=== PATIENT | female | born 1960 | race Two or more races ===

== ENCOUNTER 2021-11-03 23:58 | Emergency (ER) | payer MEDICARE, OTHER ==
[~2021-11-03] VITALS: Ht 165.1 cm; Wt 56.7 kg
--- NOTE | 2021-11-04 00:10 | NUR ---
TO ER BED 9. [id number] FROM HOME C/O ON AND OFF BLEEDING FROM L ARM SHUNT SINCE THURSDAY. BLEEDING CONTROLLED BY EMS. CONNECTED TO MONITOR. AWAITING MD HO
[2021-11-04] MEDS ORDERED: LIDOCAINE 1%-EPI 1:100,000 20 ML VIAL ONE (00:20)
[2021-11-04 00:57] LABS: BASOPHILS # (AUTO) 0.1 K/uL (0.0-0.2); BASOPHILS % (AUTO) 0.5 % (0.0-2.0); EOSINOPHILS % (AUTO) 0.6 % (0.0-6.0); HEMATOCRIT 24 % (33-45); HEMOGLOBIN 7.9 g/dL (11.5-14.8); LYMPHOCYTES # (AUTO) 0.5 K/uL (0.8-4.8); LYMPHOCYTES % (AUTO) 3.8 % (20.0-44.0); MEAN CORPUSCULAR HGB CONC 33 g/dl (31.0-36.0); MEAN CORPUSCULAR VOLUME 98 fL (82-100); MONOCYTES # (AUTO) 0.8 K/uL (0.1-1.30); MONOCYTES % (AUTO) 6.5 % (2.0-12.0); NEUTROPHILS # (AUTO) 11.3 K/uL (1.8-8.9); NEUTROPHILS % (AUTO) 88.6 % (43.0-81.0); PLATELET COUNT (AUTO) 175 K/uL (150-450); RED BLOOD CELL COUNT(AUTO) 2.41 MIL/uL (4.0-5.2); WHITE BLOOD COUNT (AUTO) 12.7 K/uL (4.3-11.0)
--- NOTE | 2021-11-04 01:22 | NUR ---
Patient discharged to home in stable condition. Written and verbal after care instructions given. Patient verbalizes understanding of instruction.
[2021-11-04] MEDS ORDERED: GELATIN SPONGE,ABSORBABLE 1 SPONGE SPONGE TP ONE (05:55)
[2021-11-04 06:14] VITALS: BP 146/70
[2021-11-04] MEDS ORDERED: SEVE800T28 PO (14:05)
[2021-11-04] MEDS ORDERED: NIFE-34 PO (14:05)
== END 2021-11-04 06:14 | disposition home or self-care (01) ==
LOC: ER 11-04 00:01
DX: T82.838A Hemorrhage due to vascular prosthetic devices, implants and grafts, initial encounter (principal); D64.9 Anemia, unspecified; I12.0 Hypertensive chronic kidney disease with stage 5 chronic kidney disease or end stage renal disease; N18.6 End stage renal disease; Z99.2 Dependence on renal dialysis; Y92.89 Other specified places as the place of occurrence of the external cause
CPT/HCPCS: 36415; 85025-TC; J3490

== ENCOUNTER 2021-11-04 13:25 | Inpatient (IN) | payer MEDICARE, OTHER ==
[~2021-11-04] VITALS: Ht 165.1 cm; Wt 55.4 kg
--- NOTE | 2021-11-04 13:27 | NUR ---
[id number] C/O [facility] BLEEDING, TO ER BED 4, NOTED [facility]. HOOKED TO MONITOR, CHANGED TO HOSP GOWN, WARM BLANKET PROVIDED. PATIENT AAO x 4. AWAITING MD HO
--- NOTE | 2021-11-04 13:38 | NUR ---
DR LUQUE AT BEDSIDE
[2021-11-04] MEDS ORDERED: GELATIN SPONGE,ABSORBABLE 1 SPONGE SPONGE TP ONE (13:47)
--- NOTE | 2021-11-04 13:54 | NUR ---
IV ESTBLISHED R HAND 22G. LABS DRAWN AND COLLECTED AT BEDSIDE.
--- NOTE | 2021-11-04 14:00 | NUR ---
RAPID COVID TEST COLLECTED AND SENT
[2021-11-04] MEDS ORDERED: SEVE800T28 PO (14:05)
[2021-11-04] MEDS ORDERED: NIFE-34 PO (14:05)
[2021-11-04] MEDS ORDERED: ACETAMINOPHEN ES 500 MG TABLET ONE (14:15)
[2021-11-04 14:16] LABS: BASOPHILS % (AUTO) 0.2 % (0.0-2.0); LYMPHOCYTES # (AUTO) 0.2 K/uL (0.8-4.8); LYMPHOCYTES % (AUTO) 2.2 % (20.0-44.0); MEAN CORPUSCULAR HGB CONC 34 g/dl (31.0-36.0); MEAN CORPUSCULAR VOLUME 98 fL (82-100); MONOCYTES # (AUTO) 0.4 K/uL (0.1-1.30); MONOCYTES % (AUTO) 3.8 % (2.0-12.0); NEUTROPHILS # (AUTO) 9.3 K/uL (1.8-8.9); NEUTROPHILS % (AUTO) 93.8 % (43.0-81.0); PLATELET COUNT (AUTO) 146 K/uL (150-450)
[2021-11-04 14:26] LABS: RED BLOOD CELL COUNT(AUTO) 1.98 MIL/uL (4.0-5.2)
[2021-11-04 14:27] LABS: HEMOGLOBIN 6.6 g/dL (11.5-14.8)
[2021-11-04 14:28] LABS: HEMATOCRIT 19 % (33-45)
--- NOTE | 2021-11-04 14:28 | NUR ---
HEMOGLOBIN 6.6; HEMATOCRIT 19. DR. HARPER AWARE
[2021-11-04] MEDS ORDERED: ACETAMINOPHEN ES 500 MG TABLET PO ONE (14:30)
[2021-11-04 14:33] LABS: CALCIUM, SERUM 8.4 mg/dL (8.5-10.1); CREATININE 3.1 mg/dL (0.6-1.3); POTASSIUM 3.8 mmol/L (3.5-5.1)
--- NOTE | 2021-11-04 14:49 | NUR ---
BED 307-1 NURSE SHERLEY
[2021-11-04 14:52] LABS: BAND % (MANUAL) 2 % (0.0-5.0); LYMPHOCYTES % (MANUAL) 6 % (16-48); MONOCYTES % (MANUAL) 2 % (0-11.0); NEUTROPHILS % (MANUAL) 90 (42-76)
--- NOTE | 2021-11-04 14:53 | NUR ---
REPORT GIVEN TO SHERLEY GOMEZ OF MS UNIT
--- NOTE | 2021-11-04 15:08 | NUR ---
PT SIGNED CONSENT FORMS FOR BLOOD TRANSFUSION
[2021-11-04] MEDS ORDERED: MAG HYDROX/AL HYDROX/SIMETH 30 ML UDC PO PRN (16:30)
[2021-11-04] MEDS ORDERED: MAGNESIUM HYDROXIDE 30 ML UDC PO PRN (16:30)
[2021-11-04] MEDS ORDERED: Z GUARD REMEDY 4 OZ OINT TP PRN (16:30)
[2021-11-04] MEDS ORDERED: ZOLPIDEM TARTRATE 5 MG TABLET PO PRN (16:30)
--- NOTE | 2021-11-04 17:00 | NUR ---
FRAME GATE MORTISER OPERATOR NOTES ADMITTED THIS 61 Y/O FEMALE PATIENT TO UNIT @6238 VIA GURNEY FROM E.R, ACCOMPANIED BY ER STAFF. PATIENT IS ALERT AND ORIENTED X4, VERBALLY RESPONSIVE, ABLE TO MAKE NEEDS KNOWN, NO SIGNS OF ACUTE DISTRESS NOTED. PATIENT ORIENTED TO ROOM. ON ROOM AIR, TOLERATING WELL. NO SOB NOTED, BREATHING EVEN AND UNLABORED. ABDOMEN SOFT AND NON-TENDER, LUNGS CLEAR TO AUSCULTATION. WITH AV FISTULA ON LEFT UPPER ARM, WITH PRESSURE DRESSING IN PLACE. NO ACTIVE BLEEDING NOTED AT THIS TIME. NOTED WITH IV ACCESS ON RIGHT HAND #22G, AND LEFT ANTECUBITAL #20G, INTACT AND PATENT, FLUSHES WELL, SALINE LOCKED. BODY ASSESSMENT DONE. SKIN GENERALLY INTACT. SAFETY MEASURE IN PLACE, BED IN LOWEST AND LOCKED POSITION, SIDE RAILS UP X2, CALL LIGHT PLACED WITHIN EASY REACH. WILL CONTINUE TO MONITOR PATIENT.
[2021-11-04] MEDS: ACETAMINOPHEN 325 MG TABLET PO PRN (17:42)
[2021-11-04 18:00] VITALS: BP 145/60
--- NOTE | 2021-11-04 18:17 | NUR ---
RN NOTES DR. MAYS CAME TO SEE PATIENT. CHECKED AV FISTULA SITE. APPLIED DERMABOND TO LEFT UPPER ARM AV FISTULA TO STOP BLEEDING AND COVERED WITH OIL EMULSION DRESSING, 4X4 GAUZE AND WRAPPED WITH KERLIX.
--- NOTE | 2021-11-04 19:00 | NUR ---
RN CLOSING NOTES PATIENT IN BED, ASLEEP, EASILY AROUSED. NO SIGNS OF ACUTE DISTRESS NOTED. STABLE ON ROOM AIR. LEFT UPPER ARM AV FISTULA SITE, WITH PRESSURE DRESSING, NO BLEEDING NOTED AT THIS TIME. SAFETY MEASURE IN PLACE. FOR TRANSFUSION OF 1 UNIT PRBC, BLOOD NOT READY AT THIS TIME. ENDORSED TO NEXT SHIFT.
--- NOTE | 2021-11-04 19:30 | NUR ---
RN opening notes Pt is sitting in bed comfortably talking on the phone. Pt is alert and orientedX4. On room air. No SOB. No S/s of distress noted. IV site at R hand# 22 is clean, intact and SL. RAC# 20 is clean, intact and flushes easily and SL. L arm av fistula dressing is intact, clean, and dry. Safety precautions is maintained. Bed at low position, brakes locked, side rails upX2, hob elevated and call light is within reach. Will continue to monitor.
[2021-11-04 20:00] VITALS: BP 156/59
--- NOTE | 2021-11-04 20:02 | NUR ---
RN notes [facility] called to find out Pt's home meds. Spoke with Pt regarding home meds. Pt informed that Pt is taking nifedipine 60 mg twice a day morning and evening. Pt also taking sevelamer twice a day with food but Pt does not remember the dosage. Informed [facility] about Pt's meds.
--- NOTE | 2021-11-04 20:39 | NUR ---
RN notes Called blood bank spoke with Avi, regarding 1 unit PRBC. Blood bank informed that PRBC will be ready in 1 hour. will continue to monitor.
[2021-11-04] MEDS: NIFEdipine XL (30MG) 30 MG TAB PO SCH (21:23)
--- NOTE | 2021-11-04 22:15 | NUR ---
RN notes Picked up 1 unit PRBC from blood bank. Received 1 unit PRBC from blood bank
[2021-11-04 22:30] VITALS: BP 142/62
[2021-11-04 22:45] VITALS: BP 127/52
--- NOTE | 2021-11-04 22:47 | NUR ---
JASON notes 1 unit PRBC started. VS is stable. Blood checked and cosigned with JASON Reyes. Addendum: 11/05/21 at 0027 by JACKIE CONNER RN 1 unit PRBC started at 2230 pm
[2021-11-04 23:05] VITALS: BP 132/52
[2021-11-04 23:35] VITALS: BP 142/62
--- NOTE | 2021-11-05 01:20 | NUR ---
RN notes Pt's AV fistula site is bleeding. Reinforce the dressing site with 4x4 and wrapped with kerlix and secured with dressing tape. Charge nurse is at the bedside. Will continue to monitor.
[2021-11-05 01:30] VITALS: BP 150/66
--- NOTE | 2021-11-05 01:30 | NUR ---
RN notes 1 unit PRBC finished transfusing. VS is stable. No SOB. No S/S of distress noted. Pt tolerated activity well.
[2021-11-05] MEDS: ACETAMINOPHEN 325 MG TABLET PO PRN ×4 (02:36→23:14)
--- NOTE | 2021-11-05 06:30 | NUR ---
RN closing notes Pt is resting in bed comfortably. Pt is alert and orientedX4. on room air. No SOB. No S/S of distress noted. VS is stable. IV site at RAC # 20 is clean, intact and SL. Routine meds were given as ordered. Kept Pt clean, dry and comfortable. Reinforce the fistula dressing. Dressing is intact. Safety precautions is maintained. Bed at low position, brakes locked, side rails upX2, hob elevated and bed alarm is on and call light is within reach. Will endorse to am nurse for TIMOTEO.
[2021-11-05 06:48] LABS: BASOPHILS % (AUTO) 0.3 % (0.0-2.0); CALCIUM, SERUM 7.6 mg/dL (8.5-10.1); CREATININE 5.3 mg/dL (0.6-1.3); LYMPHOCYTES # (AUTO) 0.1 K/uL (0.8-4.8); LYMPHOCYTES % (AUTO) 1.4 % (20.0-44.0); MEAN CORPUSCULAR HGB CONC 34 g/dl (31.0-36.0); MEAN CORPUSCULAR VOLUME 96 fL (82-100); MONOCYTES # (AUTO) 0.5 K/uL (0.1-1.30); MONOCYTES % (AUTO) 5.5 % (2.0-12.0); NEUTROPHILS # (AUTO) 9.3 K/uL (1.8-8.9); NEUTROPHILS % (AUTO) 92.8 % (43.0-81.0); PHOSPHORUS 5.1 mg/dL (2.5-4.9); PLATELET COUNT (AUTO) 106 K/uL (150-450); POTASSIUM 4.9 mmol/L (3.5-5.1)
[2021-11-05 06:58] LABS: RED BLOOD CELL COUNT(AUTO) 1.87 MIL/uL (4.0-5.2)
[2021-11-05 07:01] LABS: HEMATOCRIT 18 % (33-45); HEMOGLOBIN 6.1 g/dL (11.5-14.8)
--- NOTE | 2021-11-05 07:01 | NUR ---
RN notes Received a critical lab from [place], lab. Hemoglobin is 6.1. Will endorse to am nurse. Addendum: 11/05/21 at 0825 by JACKIE CONNER RN Charge nurse Kiana RN is aware and informed.
--- NOTE | 2021-11-05 08:04 | NUR ---
RN MS NOTES PT IN BED, AWAKE, ALERT, NO COMPLAINT AT THIS TIME, RESPIRATIONS NORMAL, DRESSING AT LEFT ARM A FISTULA INTACT, MINIMAL BLEEDING NOTED, PRESSURE APPLIED, ICE APPLIED, BED ALARM ON, WILL CONTINUE TO MONITOR.
--- NOTE | 2021-11-05 08:23 | NUR ---
RN MS NOTES DR. DIAZ INFORMED OF PT'S STATUS AND LATEST H/H, ORDER GIVEN FOR 1 UNIT PRBC STAT, NOTED AND CARRIED OUT.
[2021-11-05] MEDS: NIFEdipine XL (30MG) 30 MG TAB PO SCH ×2 (08:40→17:02)
[2021-11-05] MEDS: SEVELAMER CARBONATE 800 MG TABLET PO SCH ×2 (08:41→17:01)
[2021-11-05] MEDS ORDERED: NIFEdipine XL (30MG) 30 MG TAB PO SCH (09:00)
--- NOTE | 2021-11-05 09:50 | NUR ---
MS RN OPENING NOTES RECEIVED PATIENT ON BED AWAKE AND A/O X4. ON ROOM AIR TOLERATING WELL. NO SOB NOTED. NOT IN DISTRESS. WITH NO COMPLAINTS OF PAIN OR DISCOMFORT AT THIS TIME. DRESSING ON LEFT ARM WITH PRESENCE OF MINIMAL BLEEDING FROM AV FISTULA. PER ENDORSEMENT, DRESSING SHOULD NOT BE REMOVED BUT ONLY REINFORCE WITH PRESENCE OF BLEEDING. WITH IV ACCESS AT RIGHT AC G20 SALINE LOCKED, PATENT AND INTACT. SAFETY MEASURES IN PLACED. CALL LIGHT WITHIN REACH. BED ON LOWEST LOCKED POSITION, SIDE RAILS UP X2. WILL CONTINUE TO MONITOR.
--- NOTE | 2021-11-05 09:54 | NUR ---
RN MS NOTES REPORT GIVEN TO PAWAN GOMEZ RECEIVING NURSE, PT IN BED, RESTING, NO COMPLAINT AT THIS TIME, NOT IN DISTRESS, CALL LIGHT WITHIN REACH.
[2021-11-05 10:33] VITALS: BP 126/52
--- NOTE | 2021-11-05 10:39 | NUR ---
RN NOTE PATIENT'S HGB IS 6.1. JASON SR STARTED THE BLOOD TRANSFUSION. VITAL SIGNS TAKEN AND RECORDED. WILL MONITOR PATIENT.
[2021-11-05 10:54] VITALS: BP 135/51
[2021-11-05 11:24] VITALS: BP 136/53
[2021-11-05 12:24] VITALS: BP 138/55
[2021-11-05 12:45] LABS: BAND % (MANUAL) 5 % (0.0-5.0); LYMPHOCYTES % (MANUAL) 2 % (16-48); MONOCYTES % (MANUAL) 1 % (0-11.0); MYELOCYTES % 1 % (0-0); NEUTROPHILS % (MANUAL) 91 (42-76)
[2021-11-05 14:37] VITALS: BP 136/56
--- NOTE | 2021-11-05 14:37 | NUR ---
RN NOTE ENDED BLOOD TRANSFUSION 1 PRBC. VITAL SIGNS TAKEN: STABLE. WILL MONITOR.
[2021-11-05 15:42] LABS: HEMOGLOBIN 7.1 g/dL (11.5-14.8)
--- NOTE | 2021-11-05 19:30 | NUR ---
MS RN CLOSING NOTES PATIENT ON BED AWAKE AND A/O X4. ON ROOM AIR TOLERATING WELL. NO SOB NOTED. NOT IN DISTRESS. WITH NO COMPLAINTS OF PAIN OR DISCOMFORT AT THIS TIME. DRESSING ON LEFT ARM WITH PRESENCE OF MINIMAL BLEEDING FROM AV FISTULA. REINFORCE DRESSING WITH PRESENCE OF BLEEDING. WITH IV ACCESS AT RIGHT AC G20 SALINE LOCKED, PATENT AND INTACT. DUE MEDS GIVEN. SAFETY MEASURES IN PLACED. CALL LIGHT WITHIN REACH. BED ON LOWEST LOCKED POSITION, SIDE RAILS UP X2. WILL ENDORSE TO NEXT SHIFT FOR TIMOTEO.
--- NOTE | 2021-11-05 19:33 | NUR ---
RN OPENING NOTES PT IN BED, AWAKE, ALERT, NO COMPLAINT AT THIS TIME, RESPIRATIONS NORMAL, DRESSING AT LEFT ARM A FISTULA INTACT, MINIMAL BLEEDING NOTED, PRESSURE APPLIED, ICE APPLIED, BED ALARM ON, PT TO BE NPO POST MIDNIGHT FOR NEW HD ACCESS PLACEMENT. SAFETY PRECAUTIONS MAINTAINED AT ALL TIMES. ALL NEEDS MET AT THIS TIME.WILL CONTINUE TO MONITOR.
[2021-11-05 20:32] LABS: HEMOGLOBIN 7.2 g/dL (11.5-14.8)
[2021-11-06 02:29] LABS: HEMOGLOBIN 6.7 g/dL (11.5-14.8)
--- NOTE | 2021-11-06 02:32 | NUR ---
MS RN NOTES CRITICAL LAB HGB 6.7 HCT 19; CHARGE NURSE MADE AWARE;
--- NOTE | 2021-11-06 03:01 | NUR ---
MS RN NOTES PER STANDING ORDER 1 UNIT OF PRBC ORDERED STAT FOR ACTIVE BLEEDING. PT LFA AV FISTULA NOTED WILL BLEEDING DRESSING REWRAPPED WITH CHARGE NURSE KERRY.
[2021-11-06 06:19] LABS: BASOPHILS % (AUTO) 0.4 % (0.0-2.0); EOSINOPHILS % (AUTO) 0.1 % (0.0-6.0); HEMATOCRIT 22 % (33-45); HEMOGLOBIN 7.4 g/dL (11.5-14.8); LYMPHOCYTES # (AUTO) 0.2 K/uL (0.8-4.8); LYMPHOCYTES % (AUTO) 2.9 % (20.0-44.0); MEAN CORPUSCULAR HGB CONC 34 g/dl (31.0-36.0); MEAN CORPUSCULAR VOLUME 93 fL (82-100); MONOCYTES # (AUTO) 0.4 K/uL (0.1-1.30); MONOCYTES % (AUTO) 4.5 % (2.0-12.0); NEUTROPHILS # (AUTO) 7.7 K/uL (1.8-8.9); NEUTROPHILS % (AUTO) 92.1 % (43.0-81.0); PLATELET COUNT (AUTO) 86 K/uL (150-450); RED BLOOD CELL COUNT(AUTO) 2.35 MIL/uL (4.0-5.2); WHITE BLOOD COUNT (AUTO) 8.4 K/uL (4.3-11.0)
--- NOTE | 2021-11-06 06:48 | NUR ---
RN CLOSING NOTES PT IN BED, AWAKE, ALERT, NO COMPLAINT AT THIS TIME, RESPIRATIONS NORMAL, DRESSING AT LEFT ARM A FISTULA INTACT, MINIMAL BLEEDING NOTED, PRESSURE APPLIED, ICE APPLIED, PT NPO SINCE MIDNIGHT FOR NEW HD ACCESS SX. SAFETY PRECAUTIONS MAINTAINED AT ALL TIMES. ALL NEEDS MET AT THIS TIME. ALL NEEDS ANTICIPATED AND MET. SAFETY MEASURES FOLLOWED AT ALL TIMES. CALL LIGHT WITHIN REACH. TABLE WITHIN REACH. BLOOD NOT READY AT THIS TIME FOR TRANSFUSION WILL ENDORSE TO DAY SHIFT NURSE.WILL ENDORSE CARE TO DAYSHIFT NURSE.
--- NOTE | 2021-11-06 07:30 | NUR ---
MS RN OPENING NOTES RECEIVED PATIENT ON BED AWAKE AND A/O X4. ON ROOM AIR TOLERATING WELL. NO SOB NOTED. NOT IN DISTRESS. WITH NO COMPLAINTS OF PAIN OR DISCOMFORT AT THIS TIME. DRESSING ON LEFT ARM WITH PRESENCE OF MINIMAL BLEEDING FROM AV FISTULA. WITH IV ACCESS AT RIGHT AC G20 SALINE LOCKED, PATENT AND INTACT. MAINTAINED NPO STATUS FOR OR PROCEDURE WITH 2U PRBC STANDING ORDER FOR BLOOD TRANSFUSION WHEN HGB GOES <7. SAFETY MEASURES IN PLACED. CALL LIGHT WITHIN REACH. BED ON LOWEST LOCKED POSITION, SIDE RAILS UP X2. WILL CONTINUE TO MONITOR.
[2021-11-06 08:00] VITALS: BP 140/66
[2021-11-06 08:34] LABS: HEMOGLOBIN 6.6 g/dL (11.5-14.8)
[2021-11-06] MEDS: NIFEdipine XL (30MG) 30 MG TAB PO SCH ×2 (08:52→18:15)
[2021-11-06] MEDS: SEVELAMER CARBONATE 800 MG TABLET PO SCH ×2 (08:54→18:15)
[2021-11-06 09:54] LABS: CALCIUM, SERUM 7.5 mg/dL (8.5-10.1); CREATININE 7.1 mg/dL (0.6-1.3); POTASSIUM 5.4 mmol/L (3.5-5.1)
[2021-11-06 10:00] LABS: ALBUMIN 2.2 g/dL (3.4-5.0); BILIRUBIN,TOTAL 0.5 mg/dL (0.2-1.0); TOTAL PROTEIN, SERUM 4.9 g/dL (6.4-8.2)
[2021-11-06] MEDS ORDERED: FENTANYL PF 250MCG/5ML AMPUL ONE (10:10)
[2021-11-06] MEDS ORDERED: CLINDAMYCIN 900 MG/6 ML VIAL ONE (10:11)
[2021-11-06] MEDS ORDERED: LIDOCAINE 1% INJ 50 ML MDV IJ ONE (10:29)
[2021-11-06] MEDS ORDERED: SEVOFLURANE 250 ML BOTTLE IH ONE (11:06)
[2021-11-06] MEDS ORDERED: HEPARIN SODIUM, PORCINE 1,000 UNIT/ML VIAL ONE (11:07)
[2021-11-06] MEDS ORDERED: VANCOMYCIN 1 GM VIAL ONE (11:33)
[2021-11-06] MEDS ORDERED: HEMOSTATIC MATRIX 8 ML 1 EACH PAD MC ONE (13:01)
[2021-11-06] MEDS ORDERED: CELLULOSE,OXIDIZED 1 EACH EACH MC ONE (13:09)
[2021-11-06 14:00] LABS: BASOPHILS % (AUTO) 0.1 % (0.0-2.0); LYMPHOCYTES # (AUTO) 0.4 K/uL (0.8-4.8); LYMPHOCYTES % (AUTO) 3.9 % (20.0-44.0); MEAN CORPUSCULAR HGB CONC 34 g/dl (31.0-36.0); MEAN CORPUSCULAR VOLUME 91 fL (82-100); MONOCYTES # (AUTO) 0.5 K/uL (0.1-1.30); MONOCYTES % (AUTO) 5.2 % (2.0-12.0); NEUTROPHILS # (AUTO) 8.9 K/uL (1.8-8.9); NEUTROPHILS % (AUTO) 90.8 % (43.0-81.0); PLATELET COUNT (AUTO) 94 K/uL (150-450); RED BLOOD CELL COUNT(AUTO) 2.13 MIL/uL (4.0-5.2); WHITE BLOOD COUNT (AUTO) 9.9 K/uL (4.3-11.0)
[2021-11-06] MEDS ORDERED: VANCOMYCIN 500 MG in IV D5W 100 ML IV PRN (14:00)
[2021-11-06] MEDS ORDERED: ONDANSETRON HCL/PF 4 MG/2 ML VIAL ONE (14:01)
[2021-11-06 14:19] LABS: HEMATOCRIT 20 % (33-45); HEMOGLOBIN 6.6 g/dL (11.5-14.8)
[2021-11-06 14:30] LABS: CALCIUM, SERUM 7.4 mg/dL (8.5-10.1); POTASSIUM 5.7 mmol/L (3.5-5.1)
[2021-11-06 14:57] LABS: CREATININE 7.5 mg/dL (0.6-1.3)
[2021-11-06 15:40] LABS: BAND % (MANUAL) 11 % (0.0-5.0); LYMPHOCYTES % (MANUAL) 4 % (16-48); MONOCYTES % (MANUAL) 7 % (0-11.0); NEUTROPHILS % (MANUAL) 78 (42-76)
[2021-11-06 16:00] VITALS: BP 131/56
[2021-11-06 16:25] VITALS: BP 131/56
[2021-11-06 17:56] LABS: BAND % (MANUAL) 16 % (0.0-5.0); LYMPHOCYTES % (MANUAL) 2 % (16-48); MONOCYTES % (MANUAL) 2 % (0-11.0); NEUTROPHILS % (MANUAL) 80 (42-76)
[2021-11-06] MEDS: ACETAMINOPHEN 325 MG TABLET PO PRN (18:15)
[2021-11-06 18:33] VITALS: BP 149/79
--- NOTE | 2021-11-06 19:27 | NUR ---
RN OPENING NOTES PT IN BED, AWAKE, ALERT, NO COMPLAINT AT THIS TIME, RESPIRATIONS NORMAL, DRESSING AT LEFT ARM A FISTULA INTACT, MINIMAL BLEEDING NOTED, PRESSURE APPLIED, ICE APPLIED, PT S/P PERMA CATH PLACEMENT ON THE CHEST WALL.SAFETY PRECAUTIONS MAINTAINED AT ALL TIMES. ALL NEEDS MET AT THIS TIME. CALL LIGHT WITHIN REACH. TABLE WITHIN REACH. WILL CONTINUE TO MONITOR.
--- NOTE | 2021-11-06 19:30 | NUR ---
MS RN CLOSING NOTES PATIENT ON BED AWAKE AND A/O X4. ON ROOM AIR TOLERATING WELL. NO SOB NOTED. NOT IN DISTRESS. WITH NO COMPLAINTS OF PAIN OR DISCOMFORT AT THIS TIME. STATUS POST LEFT AV FISTULA REMOVAL AND LEFT CHESTWALL PERMACATH PLACEMENT FOR HEMODIALYSIS. POST HEMODIALYSIS BY HD RN JUAN WITH AN OUTPUT OF 2L. WITH IV ACCESS AT RIGHT AC G20 SALINE LOCKED, PATENT AND INTACT. DUE MEDS GIVEN. PATIENT IS FOR PLACEMENT OF WOUND VAC BY WOUND CARE NURSE TOMORROW IN AM. SAFETY MEASURES IN PLACED. CALL LIGHT WITHIN REACH. BED ON LOWEST LOCKED POSITION, SIDE RAILS UP X2. WILL ENDORSE TO NEXT SHIFT FOR TIMOTEO.
[2021-11-06 20:00] VITALS: BP 125/52
[2021-11-06 20:35] LABS: HEMOGLOBIN 7.5 g/dL (11.5-14.8)
[2021-11-07] MEDS: ACETAMINOPHEN 325 MG TABLET PO PRN ×3 (00:16→22:32)
--- NOTE | 2021-11-07 00:16 | NUR ---
MS RN NOTES TYLENOL PRN GIVEN FOR MILD PAIN TOLERATED WELL. PT ALSO ASKING FOR SOMETHING FOR NAUSEA PRN ZOFRAN WILL BE GIVEN.
[2021-11-07] MEDS: ONDANSETRON HCL/PF 4 MG/2 ML VIAL IVP PRN ×2 (00:19→17:32)
[2021-11-07 02:03] LABS: HEMOGLOBIN 7.6 g/dL (11.5-14.8)
[2021-11-07] MEDS ORDERED: MORPHINE SULFATE INJ 2 MG/ML DISP.SYRIN IV ONE (03:30)
--- NOTE | 2021-11-07 03:44 | NUR ---
MS RN NOTES pt unable to sleep very restless pt having generalized pain 8/[address] made aware new order for morphine 2mg iv push x1 received and carried out. pt tolerated well. will continue to monitor.
--- NOTE | 2021-11-07 06:48 | NUR ---
RN CLOSING NOTES PT IN BED, AWAKE, ALERT, NO COMPLAINT AT THIS TIME, RESPIRATIONS NORMAL, DRESSING AT LEFT ARM A FISTULA INTACT, MINIMAL BLEEDING NOTED, PRESSURE APPLIED,, PT S/P PERMA CATH PLACEMENT ON THE L CHEST WALL.SAFETY PRECAUTIONS MAINTAINED AT ALL TIMES. ALL NEEDS MET AT THIS TIME. CALL LIGHT WITHIN REACH. TABLE WITHIN REACH. PAIN MANAGEMENT PROVIDED NEEDED. WILL ENDORSE CARE TO DAY SHIFT NURSE.
[2021-11-07 07:04] LABS: ALBUMIN 1.6 g/dL (3.4-5.0); BILIRUBIN,TOTAL 0.3 mg/dL (0.2-1.0); CALCIUM, SERUM 7.1 mg/dL (8.5-10.1); CREATININE 4.8 mg/dL (0.6-1.3); POTASSIUM 4.8 mmol/L (3.5-5.1); TOTAL PROTEIN, SERUM 4.4 g/dL (6.4-8.2)
[2021-11-07 07:21] LABS: BASOPHILS % (AUTO) 0.2 % (0.0-2.0); EOSINOPHILS % (AUTO) 0.6 % (0.0-6.0); HEMATOCRIT 22 % (33-45); HEMOGLOBIN 7.6 g/dL (11.5-14.8); LYMPHOCYTES # (AUTO) 0.3 K/uL (0.8-4.8); LYMPHOCYTES % (AUTO) 4.4 % (20.0-44.0); MEAN CORPUSCULAR HGB CONC 35 g/dl (31.0-36.0); MEAN CORPUSCULAR VOLUME 91 fL (82-100); MONOCYTES # (AUTO) 0.9 K/uL (0.1-1.30); NEUTROPHILS # (AUTO) 5.9 K/uL (1.8-8.9); NEUTROPHILS % (AUTO) 81.8 % (43.0-81.0); PLATELET COUNT (AUTO) 71 K/uL (150-450); RED BLOOD CELL COUNT(AUTO) 2.39 MIL/uL (4.0-5.2); WHITE BLOOD COUNT (AUTO) 7.2 K/uL (4.3-11.0)
--- NOTE | 2021-11-07 07:57 | NUR ---
RN OPENING NOTE PATIENT RECEIVED IN BED, AO X 4. ABLE TO RESPONDS ALL STIMULI. IN NO ACUTE DISTRESS NOTED. RESPIRATORY EVEN AND UNLABORED ON ROOM AIR. SKIN IS WARM TO TOUCH, KEEP CLEAN/DRY. KEPT ELEVATED HOB FOR ENSURE AIRWAY AND ASPIRATION PRECAUTION, ALSO LOWEST POSITION OF THE BED, S/R UP X 3, BED ALARM IS ON AT ALL THE TIMES. ALL SAFETY PRECAUTION APPLIED. CALL LIGHT WITHIN REACH, WILL CONTINUE TO MONITOR.
[2021-11-07 08:00] VITALS: BP 101/41
[2021-11-07 08:17] LABS: HEMOGLOBIN 7.4 g/dL (11.5-14.8)
[2021-11-07] MEDS: NIFEdipine XL (30MG) 30 MG TAB PO SCH ×2 (09:00→17:31)
[2021-11-07] MEDS: SEVELAMER CARBONATE 800 MG TABLET PO SCH ×2 (09:02→17:31)
[2021-11-07 14:07] LABS: HEMOGLOBIN 7.4 g/dL (11.5-14.8)
[2021-11-07 16:00] VITALS: BP 131/51
[2021-11-07] MEDS: MORPHINE SULFATE INJ 4 MG/ML DISP.SYRIN IV PRN (19:04)
--- NOTE | 2021-11-07 19:20 | NUR ---
RN NOTE PT RESTING IN BED, AWAKE, ABLE TO VERBALIZE NEEDS. RESPIRATIONS EVEN/UNLABORED. SHE DENIES PAIN AT THIS TIME. IV SITE: R-AC #20 INTACT/PATENT/FLUSHES WELL. LCW PERMCATH IN PLACE WITH DRESSING C/D/I. L-ARM S/P REMOVAL OF FISTULA WITH DRESSING C/D/I. PT IN NO ACUTE DISTRESS. SAFETY MEASURES IN PLACE. WILL CONT TO MONITOR.
[2021-11-07 20:00] VITALS: BP 136/66
[2021-11-07 20:37] LABS: HEMOGLOBIN 7.9 g/dL (11.5-14.8)
[2021-11-08 02:07] LABS: HEMOGLOBIN 7.2 g/dL (11.5-14.8)
[2021-11-08 06:37] LABS: BASOPHILS % (AUTO) 0.1 % (0.0-2.0); EOSINOPHILS % (AUTO) 0.5 % (0.0-6.0); HEMATOCRIT 21 % (33-45); HEMOGLOBIN 7.2 g/dL (11.5-14.8); LYMPHOCYTES # (AUTO) 0.4 K/uL (0.8-4.8); LYMPHOCYTES % (AUTO) 4.8 % (20.0-44.0); MEAN CORPUSCULAR HGB CONC 34 g/dl (31.0-36.0); MEAN CORPUSCULAR VOLUME 91 fL (82-100); MONOCYTES # (AUTO) 1.1 K/uL (0.1-1.30); MONOCYTES % (AUTO) 12.4 % (2.0-12.0); NEUTROPHILS # (AUTO) 7.5 K/uL (1.8-8.9); NEUTROPHILS % (AUTO) 82.2 % (43.0-81.0); PLATELET COUNT (AUTO) 80 K/uL (150-450); RED BLOOD CELL COUNT(AUTO) 2.33 MIL/uL (4.0-5.2); WHITE BLOOD COUNT (AUTO) 9.1 K/uL (4.3-11.0)
--- NOTE | 2021-11-08 06:49 | NUR ---
RN NOTE PT AWAKE IN BED, A/OX4. NO C/O PAIN AT THIS TIME. DENIES SOB. L-ARM DRESSING C/D/I. PT IN NO ACUTE DISTRESS. ALL NEEDS ATTENDED TO. SAFETY MEASURES MAINTAINED.
[2021-11-08 06:57] LABS: ALBUMIN 1.8 g/dL (3.4-5.0); BILIRUBIN,TOTAL 0.3 mg/dL (0.2-1.0); CALCIUM, SERUM 7.2 mg/dL (8.5-10.1); CREATININE 6.5 mg/dL (0.6-1.3); MAGNESIUM 2.2 mg/dL (1.8-2.4); PHOSPHORUS 6.7 mg/dL (2.5-4.9); POTASSIUM 4.5 mmol/L (3.5-5.1); TOTAL PROTEIN, SERUM 4.7 g/dL (6.4-8.2)
--- NOTE | 2021-11-08 07:35 | NUR ---
ms rn received on bed, awake,alert,oriented x4,not in any form of distress, respirations even and unlabored,no sob noted, s/p removal of left upper arm fistula w/ dressing dry and intact.denies pain at this time.
[2021-11-08 08:24] LABS: HEMOGLOBIN 7.2 g/dL (11.5-14.8)
--- NOTE | 2021-11-08 08:30 | NUR ---
ms morales breakfast served,due meds given,tolerated well.
[2021-11-08] MEDS: ACETAMINOPHEN 325 MG TABLET PO PRN ×2 (08:32→15:55)
[2021-11-08] MEDS: NIFEdipine XL (30MG) 30 MG TAB PO SCH ×2 (08:32→17:00)
[2021-11-08] MEDS: SEVELAMER CARBONATE 800 MG TABLET PO SCH ×2 (08:32→17:00)
[2021-11-08 09:35] LABS: EOSINOPHILS % (MANUAL) 4 % (0-4); LYMPHOCYTES % (MANUAL) 4 % (16-48); MONOCYTES % (MANUAL) 14 % (0-11.0); NEUTROPHILS % (MANUAL) 78 (42-76)
--- NOTE | 2021-11-08 09:53 | NUR ---
WOUND CARE CONSULT: PT SEEN FOR [employer] WOUND VAC PLACEMENT TO LEFT ARM SURGICAL SITE. INCISION IS CLEAR WITH MARYSE AND OPEN WOUND IN CENTER OF INCISION, MEASURING 1CM X 1.5CM X 1.5CM DEPTH, RED IN COLOR WITH SMALL AMOUNT OF SEROSANGUINOUS DRAINAGE, NO ODOR. SKIN PREP AND VAC DRAPE APPLIED TO PERIWOUND AREA, GRANUFOAM TO WOUND. VAC AT 125mmHg CONTINUOUS SETTING. RECOMMENDATIONS MADE FOR SKIN PROTECTION. DISCUSSED WITH NURSING STAFF. XEROFORM AND GAUZE, KERLIX APPLIED TO PROXIMAL AREA OF INCISION. PT TOLERATED WELL. DISCUSSED WITH ADJUNCT ENGLISH INSTRUCTOR AND REPAIRER TYPEWRITER RN. WILL FOLLOW. Addendum: 11/08/21 at 1005 by TRI MARTIN WNDNU MSG LEFT FOR DR MAYS AT HIS OFFICE REGARDING WOUND VAC PLACEMENT THIS AM AND RECOMMENDATIONS/WOUND CARE ORDERS FOR WHEN PT IS DISCHARGED FROM HOSPITAL (REMOVE VAC DRESSING, CLEANSE WITH NS, PACK WOUND GENTLY WITH IODOFORM PACKING AND USE XEROFORM TO INCISION, COVER WITH GAUZE, KERLIX.)
[2021-11-08 16:08] LABS: HEMOGLOBIN 6.8 g/dL (11.5-14.8)
--- NOTE | 2021-11-08 16:45 | NUR ---
ms rn hd done w/ 2liters out tolerated well.
--- NOTE | 2021-11-08 17:01 | NUR ---
ms rn on bed, all needs attended.
--- NOTE | 2021-11-08 19:30 | NUR ---
MS RN OPENING NOTE RECEIVED PATIENT IN BED, A/OX4. NO S/S OF APPARENT DISTRESS ON ROOM AIR. DENIES PAIN AT THIS TIME. WOUND VAC NOTED IN PLACE. NO FLUIDS RUNNING AT THIS TIME. ORIENTED AND ENCOURAGED WITH THE USE OF CALL LIGHT. WILL CONTINUE WITH PATIENT'S PLAN OF CARE.
[2021-11-08 20:00] VITALS: BP 115/37
[2021-11-08 20:35] VITALS: BP 115/37
--- NOTE | 2021-11-08 20:40 | NUR ---
MS RN NOTE BLOOD TRANSFUSION STARTED AT THIS TIME. INITIAL V/S FOLLOWS: 115/37, HR-48, RR-20, T-98.2, AND SATURATION 97% ON ROOM AIR. RATE STARTED AT 60 MLS AN HOUR. WILL RE-CHECK 15 MIN. LATER.
[2021-11-08 20:55] VITALS: BP 144/55
--- NOTE | 2021-11-08 20:55 | NUR ---
15 MIN AFTER BLOOD TRANSFUSION PATIENT NOT EXHIBITING ANY S/S OF TRANSFUSION REACTION. INCREASED RATE TO 100 ML/HR. V/S FOLLOWS: 144/55, HR-48, T-98.1, RR-18, SATURATION 99% ON ROOM AIR. WILL RECHECK 60 MIN LATER.
--- NOTE | 2021-11-08 21:00 | NUR ---
MS GOMEZ NOTE BLOOD TRANSFUSION STARTED AT THIS TIME. INITIAL V/S FOLLOWS: 115/37, HR-48, RR-20, T-98.2, AND SATURATION 97% ON ROOM AIR. RATE STARTED AT 60 MLS AN HOUR. WILL RE-CHECK 15 MIN. LATER. Addendum: 11/08/21 at 210 by ELVA TOBIN RN DISREGARD
[2021-11-08] MEDS: MORPHINE SULFATE INJ 4 MG/ML DISP.SYRIN IV PRN (21:54)
[2021-11-08 21:55] VITALS: BP 149/56
--- NOTE | 2021-11-08 22:09 | NUR ---
60 MINUTES INTO BLOOD TRANSFUSION PATIENT C/O LOWER BACK PAIN BUT NO CHILLS, FEVER, NOR SOB. V/S STABLE: 149/56, HR-48, SATURATION 99%, T-98.2. PATIENT GIVEN MORPHINE PER REQUEST AND CHANGED POSITION. WILL CONTINUE TO MONITOR. RATE INCREASED TO 110 MLS/HR.
[2021-11-08 23:23] VITALS: BP 141/57
--- NOTE | 2021-11-08 23:23 | NUR ---
MS RN NOTE BLOOD TRANSFUSION ENDED AT THIS TIME WITH NO TRANSFUSION REACTION NOTED. V/S STABLE AND FOLLOWS: 141/57 HR-46, RR-20, SATURATION 96% ON ROOM AIR. WILL CONT. TO MONITOR. H&H AN HOUR LATER.
[2021-11-09 00:45] LABS: HEMOGLOBIN 9.2 g/dL (11.5-14.8)
[2021-11-09] MEDS: MORPHINE SULFATE INJ 4 MG/ML DISP.SYRIN IV PRN (01:55)
[2021-11-09 06:33] LABS: BASOPHILS % (AUTO) 0.2 % (0.0-2.0); EOSINOPHILS % (AUTO) 1.5 % (0.0-6.0); HEMATOCRIT 27 % (33-45); HEMOGLOBIN 9.1 g/dL (11.5-14.8); LYMPHOCYTES # (AUTO) 0.6 K/uL (0.8-4.8); LYMPHOCYTES % (AUTO) 5.2 % (20.0-44.0); MEAN CORPUSCULAR HGB CONC 34 g/dl (31.0-36.0); MEAN CORPUSCULAR VOLUME 91 fL (82-100); MONOCYTES # (AUTO) 1.4 K/uL (0.1-1.30); NEUTROPHILS # (AUTO) 9.6 K/uL (1.8-8.9); NEUTROPHILS % (AUTO) 81.1 % (43.0-81.0); PLATELET COUNT (AUTO) 121 K/uL (150-450); RED BLOOD CELL COUNT(AUTO) 2.95 MIL/uL (4.0-5.2); WHITE BLOOD COUNT (AUTO) 11.9 K/uL (4.3-11.0)
[2021-11-09 06:41] LABS: ALBUMIN 1.9 g/dL (3.4-5.0); BILIRUBIN,TOTAL 0.5 mg/dL (0.2-1.0); CALCIUM, SERUM 7.4 mg/dL (8.5-10.1); CREATININE 4.6 mg/dL (0.6-1.3); POTASSIUM 4.8 mmol/L (3.5-5.1); TOTAL PROTEIN, SERUM 5.1 g/dL (6.4-8.2)
--- NOTE | 2021-11-09 06:52 | NUR ---
MS RN CLOSING NOTE PATIENT SITTING IN BED. A/OX4. NO S/S OF APPARENT DISTRESS, O2 PRN FOR COMFORT. PAIN TOLERABLE AT THIS TIME PER PATIENT. NO IV FLUIDS RUNNING AT THIS TIME. ALL NEEDS ATTENDED. PAIN MANAGED WITH MEDICATION. SAFETY IN PLACE THE WHOLE SHIFT. WILL ENDORSE TO MORNING SHIFT RN FOR CONTINUITY OF CARE.
--- NOTE | 2021-11-09 07:30 | NUR ---
ms rn received patient on bed, awake,alert,oriented x 4,not in any form of distress, respirations even and unlabored,no sob noted, lungs are clear,abdomen soft,positive bowel sounds, denies pain at this time, left upper arm wound w/ wound vac setting at 125mmhg, scant amount of drainage, all needs attended.
[2021-11-09 07:53] VITALS: BP 164/69
[2021-11-09] MEDS ORDERED: VANCOMYCIN POST DIALYSIS 500MG IV PRN ×2 (08:30)
--- NOTE | 2021-11-09 08:30 | NUR ---
ms morales breakfast served,due meds given,tolerated well.
[2021-11-09] MEDS: SEVELAMER CARBONATE 800 MG TABLET PO SCH (08:47)
[2021-11-09] MEDS: NIFEdipine XL (30MG) 30 MG TAB PO SCH (08:58)
--- NOTE | 2021-11-09 09:30 | NUR ---
ms rn was seen by keith meehan w/ order to go to [facility] today but declined, instead ,patient wanted to go home w/ daughter.
[2021-11-09] MEDS ORDERED: VANCOMYCIN 1 GM in IV D5W 250 ML IV ONE (12:00)
--- NOTE | 2021-11-09 12:41 | NUR ---
ms rn daughter at bedside, will pick her up when atb is done.
[2021-11-09] MEDS: ACETAMINOPHEN 325 MG TABLET PO PRN (13:36)
[2021-11-09 15:58] VITALS: BP 148/62
--- NOTE | 2021-11-09 16:30 | NUR ---
ms travel rn instructions given and understood, patient went home w/ home health and portable wound vac set up,all needs attended.
== END 2021-11-09 16:40 | disposition home health service (06) | DRG 252 ==
LOC: ER 13:27 → MED 15:07
PROVIDERS: ADMIT Student in an Organized Health Care Education/Training Program; ATTEND Internal Medicine
PROC: 30233N1 Transfusion of Nonautologous Red Blood Cells into Peripheral Vein, Percutaneous Approach (ICD-10-PCS; 2021-11-04)
PROC: 03L Upper Arteries, Occlusion (ICD-10-PCS; principal; 2021-11-06)
PROC: 03U Upper Arteries, Supplement (ICD-10-PCS; 2021-11-06)
PROC: 5A1D70Z Performance of Urinary Filtration, Intermittent, Less than 6 Hours Per Day (ICD-10-PCS; 2021-11-06)
PROC: 0JHF3XZ Insertion of Tunneled Vascular Access Device into Left Upper Arm Subcutaneous Tissue and Fascia, Percutaneous Approach (ICD-10-PCS; 2021-11-06)
PROC: 05HN33Z Insertion of Infusion Device into Left Internal Jugular Vein, Percutaneous Approach (ICD-10-PCS; 2021-11-06)
PROC: B514YZA Fluoroscopy of Left Jugular Veins using Other Contrast, Guidance (ICD-10-PCS; 2021-11-06)
DX: T82.838A Hemorrhage due to vascular prosthetic devices, implants and grafts, initial encounter (principal); N18.6 End stage renal disease; I12.0 Hypertensive chronic kidney disease with stage 5 chronic kidney disease or end stage renal disease; D62 Acute posthemorrhagic anemia; Y84.1 Kidney dialysis as the cause of abnormal reaction of the patient, or of later complication, without mention of misadventure at the time of the procedure; D69.6 Thrombocytopenia, unspecified; Z99.2 Dependence on renal dialysis; Z20.822 Contact with and (suspected) exposure to COVID-19; Y92.89 Other specified places as the place of occurrence of the external cause; Z79.899 Other long term (current) drug therapy; Z88.0 Allergy status to penicillin; Z98.890 Other specified postprocedural states; E83.39 Other disorders of phosphorus metabolism
CPT/HCPCS: 36415; 71045-TC; 80048-TC; 80053-TC; 80202-TC; 83540-TC; 83735-TC; 84100-TC; 85025-TC; 85027-TC; 85730-TC; 86706; 86803; 86850-TC; 87040-TC; 87081-TC; 87340; 87806; 90935-TC; 97112-TC; 97116-TC; 97530-TC; 97535-TC; A6253; A6403; A6407; C1750; C1757; C1769; C1894; C9803; G0378; J1644; J2270; J2405; J2704; J2765; J3010; J3370; J3490; J7030; J7050; J7060; P9016

== ENCOUNTER 2023-09-04 14:52 | Inpatient (IN) | payer MEDICARE, OTHER ==
[~2023-09-04] VITALS: Ht 152.4 cm; Wt 59.0 kg
[~2023-09-04 14:52] MED LIST: NIFE-34 PO; SEVE800T28 PO
[2023-09-04 15:46] LABS: BASOPHILS # (AUTO) 0.1 K/uL (0.0-0.2); BASOPHILS % (AUTO) 1.2 % (0.0-2.0); EOSINOPHILS # (AUTO) 0.1 K/uL (0.0-0.7); EOSINOPHILS % (AUTO) 0.6 % (0.0-6.0); HEMATOCRIT 22 % (33-45); HEMOGLOBIN 7.2 g/dL (11.5-14.8); LYMPHOCYTES # (AUTO) 0.7 K/uL (0.8-4.8); LYMPHOCYTES % (AUTO) 7.4 % (20.0-44.0); MEAN CORPUSCULAR HEMOGLOBIN 31 PG (26.0-33.0); MEAN CORPUSCULAR HGB CONC 33 g/dl (31.0-36.0); MEAN CORPUSCULAR VOLUME 94 fL (82-100); MONOCYTES # (AUTO) 0.6 K/uL (0.1-1.30); MONOCYTES % (AUTO) 5.5 % (2.0-12.0); NEUTROPHILS # (AUTO) 8.5 K/uL (1.8-8.9); NEUTROPHILS % (AUTO) 85.3 % (43.0-81.0); PLATELET COUNT (AUTO) 257 K/uL (150-450); RED BLOOD CELL COUNT(AUTO) 2.32 MIL/uL (4.0-5.2); RED CELL DISTRIBUTION WIDTH 18.5 % (11.5-15.0)
[2023-09-04 16:10] LABS: CALCIUM, SERUM 8.3 mg/dL (8.5-10.1); CARBON DIOXIDE 25 mmol/L (21-32); CHLORIDE 103 mmol/L (98-107); CREATININE 2.8 mg/dL (0.6-1.3); GLUCOSE 86 mg/dL (74-106); POTASSIUM 3.9 mmol/L (3.5-5.1); SODIUM SERUM 137 mmol/L (136-145); UREA NITROGEN, BLOOD 33 mg/dL (7-18)
[2023-09-04 16:13] LABS: INR 1.14 (0.91-1.10); PARTIAL THROMBOPLASTIN TIME 37.4 SEC (24.3-34.3); PROTHROMBIN TIME 11.6 SECS (9.2-11.1)
[2023-09-04 16:17] LABS: ALANINE AMINOTRANSFERASE 24 U/L (12-78); ALBUMIN 2.3 g/dL (3.4-5.0); ALCOHOL, BLOOD < 3 mg/dL (0-10); ALKALINE PHOSPHATASE 198 U/L (46-116); ASPARTATE AMINOTRANSFERASE 33 U/L (15-37); BILIRUBIN,DIRECT 0.2 mg/dL (0.0-0.2); BILIRUBIN,TOTAL 0.5 mg/dL (0.2-1.0); TOTAL PROTEIN, SERUM 6.9 g/dL (6.4-8.2)
[2023-09-04 16:26] LABS: SERUM AMMONIA < 11 umol/L (11-32)
[2023-09-04 16:49] LABS: THYROID STIMULATING HORMONE 156.043 uIU/mL (0.358-3.74)
[2023-09-04] MEDS ORDERED: CT SWABBABLE VALVE TRANS SET 1 EA INFUS.SET MC ONE (17:22)
[2023-09-04] MEDS ORDERED: IOHEXOL-350 100 ML VIAL IV ONE (17:22)
[2023-09-04] MEDS ORDERED: IV NS 0.9% 250 ML IV ONE (17:22)
[2023-09-04] MEDS ORDERED: ACET-637 PO (17:26)
[2023-09-04] MEDS ORDERED: NIFE30TA2 PO (17:26)
[2023-09-04] MEDS ORDERED: LEVO750T46 PO (17:26)
[2023-09-04] MEDS ORDERED: POLY510P31 PO (17:26)
[2023-09-04] MEDS ORDERED: BACL5TAB PO (17:26)
[2023-09-04] MEDS ORDERED: MIDO2.5T PO (17:26)
[2023-09-04] MEDS ORDERED: ASPI-1169 PO (17:26)
[2023-09-04] MEDS ORDERED: DOCU100C58 PO (17:26)
[2023-09-04] MEDS ORDERED: CARV3.122 PO (17:26)
[2023-09-04] MEDS ORDERED: COLL30OI TP (17:26)
[2023-09-04] MEDS ORDERED: APIX2.5T PO (17:26)
[2023-09-04] MEDS ORDERED: PANT40TA49 PO (17:26)
[2023-09-04] MEDS ORDERED: ONDANSETRON HCL/PF 4 MG/2 ML VIAL IVP PRN (19:00)
[2023-09-04] MEDS ORDERED: MAGNESIUM HYDROXIDE 30 ML UDC PO PRN (19:00)
[2023-09-04] MEDS ORDERED: Z GUARD REMEDY 4 OZ OINT TP PRN (19:00)
[2023-09-04] MEDS ORDERED: ACETAMINOPHEN 325 MG TABLET PO PRN (19:00)
[2023-09-04] MEDS ORDERED: MAG HYDROX/AL HYDROX/SIMETH 30 ML UDC PO PRN (19:00)
[2023-09-04 20:00] VITALS: BP 152/58; TEMP 98.4; O2SAT 100
[2023-09-04 21:00] LABS: ALBUMIN 1.9 g/dL (3.4-5.0); BILIRUBIN,TOTAL 0.5 mg/dL (0.2-1.0); CALCIUM, SERUM 8.3 mg/dL (8.5-10.1); CREATININE 3.1 mg/dL (0.6-1.3); POTASSIUM 4.1 mmol/L (3.5-5.1); TOTAL PROTEIN, SERUM 6.3 g/dL (6.4-8.2)
[2023-09-04 21:07] LABS: THYROID STIMULATING HORMONE 179.141 uIU/mL (0.358-3.74)
[2023-09-04 21:46] LABS: ANISOCYTOSIS 1+; BAND % (MANUAL) 3 % (0.0-5.0); EOSINOPHILS % (MANUAL) 1 % (0-4); LYMPHOCYTES % (MANUAL) 10 % (16-48); MONOCYTES % (MANUAL) 5 % (0-11.0); NEUTROPHILS % (MANUAL) 81 (42-76); OVALOCYTES RARE; PLATELET ESTIMATE ADEQUATE; ROULEAUX 1+
[2023-09-04] MEDS: BLOOD SUGAR DIAGNOSTIC 1 EACH STRIP IN SCH (22:43)
[2023-09-05] VITALS (7 sets, daily range): BP systolic 133–158; BP diastolic 56–71; TEMP 97.5–99.7; O2SAT 95–100
[2023-09-05] MEDS: BLOOD SUGAR DIAGNOSTIC 1 EACH STRIP IN SCH (00:14)
[2023-09-05] MEDS: ASPIRIN 81 MG TAB.CHEW PO SCH (02:39)
[2023-09-05 06:29] LABS: BASOPHILS # (AUTO) 0.1 K/uL (0.0-0.2); BASOPHILS % (AUTO) 0.8 % (0.0-2.0); EOSINOPHILS # (AUTO) 0.2 K/uL (0.0-0.7); EOSINOPHILS % (AUTO) 2.1 % (0.0-6.0); LYMPHOCYTES # (AUTO) 0.9 K/uL (0.8-4.8); LYMPHOCYTES % (AUTO) 8.5 % (20.0-44.0); MEAN CORPUSCULAR HEMOGLOBIN 32 PG (26.0-33.0); MEAN CORPUSCULAR HGB CONC 33 g/dl (31.0-36.0); MEAN CORPUSCULAR VOLUME 96 fL (82-100); MONOCYTES # (AUTO) 0.7 K/uL (0.1-1.30); MONOCYTES % (AUTO) 6.6 % (2.0-12.0); NEUTROPHILS # (AUTO) 8.2 K/uL (1.8-8.9); PLATELET COUNT (AUTO) 243 K/uL (150-450); RED BLOOD CELL COUNT(AUTO) 2.05 MIL/uL (4.0-5.2); RED CELL DISTRIBUTION WIDTH 19.4 % (11.5-15.0)
[2023-09-05 06:52] LABS: CALCIUM, SERUM 8.2 mg/dL (8.5-10.1); CREATININE 3.9 mg/dL (0.6-1.3); MAGNESIUM 2.2 mg/dL (1.8-2.4); POTASSIUM 4.6 mmol/L (3.5-5.1)
[2023-09-05 07:14] LABS: HEMATOCRIT 20 % (33-45); HEMOGLOBIN 6.5 g/dL (11.5-14.8)
[2023-09-05] MEDS: POLYETHYLENE GLYCOL 3350 17 GM POWD.PACK PO SCH (08:51)
[2023-09-05] MEDS: DOCUSATE SODIUM 100 MG CAPSULE PO SCH (08:51)
[2023-09-05] MEDS: PANTOPRAZOLE 40 MG TABLET.DR PO SCH (08:51)
[2023-09-05] MEDS: NIFEdipine XL (30MG) 30 MG TAB PO SCH (08:52)
[2023-09-05] MEDS: CARVEDILOL 3.125 MG TABLET PO SCH (08:52)
[2023-09-05] MEDS: APIXABAN 2.5 MG TABLET PO SCH (09:00)
[2023-09-05] MEDS ORDERED: ASPIRIN 81 MG TAB.CHEW PO SCH (09:00)
[2023-09-05] MEDS: THERAHONEY GEL 1.5 OZ TUBE TP SCH (09:33)
[2023-09-05 11:55] LABS: ANISOCYTOSIS 1+; BASOPHILS % (MANUAL) 0 % (0.0-2.0); EOSINOPHILS % (MANUAL) 2 % (0-4); HYPOCHROMASIA 1+; LYMPHOCYTES % (MANUAL) 8 % (16-48); MONOCYTES % (MANUAL) 5 % (0-11.0); NEUTROPHILS % (MANUAL) 85 (42-76); OVALOCYTES 1+; PLATELET ESTIMATE ADEQUATE; STOMATOCYTES 1+
[2023-09-05 13:47] LABS: THYROID STIMULATING HORMONE 156.793 uIU/mL (0.358-3.74)
[2023-09-05 15:24] LABS: OCCULT BLOOD STOOL POSITIVE (NEGATIVE)
[2023-09-05] MEDS: HYDROCORTISONE ACETATE 25 MG/SUPP.RECT SUPP.RECT RC SCH (19:44)
[2023-09-06] VITALS (7 sets, daily range): BP systolic 110–153; BP diastolic 55–83; TEMP 97.9–99.7; O2SAT 97–100
[2023-09-06 07:03] LABS: BASOPHILS # (AUTO) 0.1 K/uL (0.0-0.2); BASOPHILS % (AUTO) 0.5 % (0.0-2.0); EOSINOPHILS # (AUTO) 0.2 K/uL (0.0-0.7); EOSINOPHILS % (AUTO) 1.8 % (0.0-6.0); HEMATOCRIT 24 % (33-45); HEMOGLOBIN 8.2 g/dL (11.5-14.8); LYMPHOCYTES # (AUTO) 0.8 K/uL (0.8-4.8); LYMPHOCYTES % (AUTO) 7.1 % (20.0-44.0); MEAN CORPUSCULAR HEMOGLOBIN 31 PG (26.0-33.0); MEAN CORPUSCULAR HGB CONC 34 g/dl (31.0-36.0); MEAN CORPUSCULAR VOLUME 92 fL (82-100); MONOCYTES # (AUTO) 0.9 K/uL (0.1-1.30); MONOCYTES % (AUTO) 7.7 % (2.0-12.0); NEUTROPHILS # (AUTO) 9.4 K/uL (1.8-8.9); NEUTROPHILS % (AUTO) 82.9 % (43.0-81.0); PLATELET COUNT (AUTO) 232 K/uL (150-450); RED BLOOD CELL COUNT(AUTO) 2.62 MIL/uL (4.0-5.2); RED CELL DISTRIBUTION WIDTH 17.3 % (11.5-15.0); WHITE BLOOD COUNT (AUTO) 11.4 K/uL (4.3-11.0)
[2023-09-06 07:15] LABS: CALCIUM, SERUM 7.4 mg/dL (8.5-10.1); CREATININE 2.9 mg/dL (0.6-1.3); PHOSPHORUS 3.9 mg/dL (2.5-4.9); POTASSIUM 3.7 mmol/L (3.5-5.1)
[2023-09-06] MEDS: DOCUSATE SODIUM 100 MG CAPSULE PO SCH (09:02)
[2023-09-06 09:37] LABS: IRON, SERUM 30 ug/dl (50-175); TOTAL IRON BINDING CAPACITY 133 ug/dl (250-450)
[2023-09-06 10:06] LABS: FERRITIN 3252 ng/mL (8-388)
[2023-09-06] MEDS: SENNOSIDES 8.6 MG TABLET PO SCH (21:13)
[2023-09-06] MEDS: ATORVASTATIN 10 MG TABLET PO SCH (21:15)
[2023-09-07] VITALS: BP 137/60; TEMP 98.8; O2SAT 99
[2023-09-07 04:00] VITALS: BP 130/54; TEMP 98.6; O2SAT 99
[2023-09-07 07:30] VITALS: BP 151/63; TEMP 99.1; O2SAT 99
[2023-09-07 08:01] VITALS: O2SAT 99
[2023-09-07] MEDS: CARVEDILOL 3.125 MG TABLET PO SCH (09:18)
[2023-09-07] MEDS ORDERED: ATOR10TA PO (10:06)
[2023-09-07] MEDS ORDERED: CARV3.122 PO (10:06)
[2023-09-07 11:17] LABS: BASOPHILS # (AUTO) 0.1 K/uL (0.0-0.2); BASOPHILS % (AUTO) 0.5 % (0.0-2.0); EOSINOPHILS # (AUTO) 0.1 K/uL (0.0-0.7); EOSINOPHILS % (AUTO) 1.2 % (0.0-6.0); HEMATOCRIT 25 % (33-45); HEMOGLOBIN 8.3 g/dL (11.5-14.8); LYMPHOCYTES # (AUTO) 0.6 K/uL (0.8-4.8); LYMPHOCYTES % (AUTO) 5.9 % (20.0-44.0); MEAN CORPUSCULAR HEMOGLOBIN 31 PG (26.0-33.0); MEAN CORPUSCULAR HGB CONC 33 g/dl (31.0-36.0); MEAN CORPUSCULAR VOLUME 94 fL (82-100); MONOCYTES # (AUTO) 0.6 K/uL (0.1-1.30); MONOCYTES % (AUTO) 5.3 % (2.0-12.0); NEUTROPHILS # (AUTO) 9.6 K/uL (1.8-8.9); NEUTROPHILS % (AUTO) 87.1 % (43.0-81.0); PLATELET COUNT (AUTO) 216 K/uL (150-450); RED BLOOD CELL COUNT(AUTO) 2.69 MIL/uL (4.0-5.2); RED CELL DISTRIBUTION WIDTH 17.2 % (11.5-15.0)
[2023-09-07 11:25] LABS: CREATININE 4.7 mg/dL (0.6-1.3); POTASSIUM 4.2 mmol/L (3.5-5.1)
[2023-09-07] MEDS: THERAHONEY GEL 1.5 OZ TUBE TP SCH (12:00)
[2023-09-07] MEDS: METOPROLOL TARTRATE INJ 5 MG/5 ML AMPUL IVP PRN (15:05)
[2023-09-07] MEDS ORDERED: METOPROLOL TARTRATE INJ 5 MG/5 ML AMPUL ONE ×3 (15:10→15:27)
[2023-09-07] MEDS ORDERED: IOHEXOL-350 100 ML VIAL IV ONE (15:10)
[2023-09-07] MEDS ORDERED: NITROGLYCERIN 0.4 MG/TAB BOTTLE ONE (15:10)
[2023-09-07] MEDS ORDERED: CT SWABBABLE VALVE TRANS SET 1 EA INFUS.SET MC ONE (15:10)
[2023-09-07] MEDS ORDERED: IV NS 0.9% 250 ML IV ONE (15:10)
[2023-09-07] MEDS: NITROGLYCERIN 0.4 MG/TAB BOTTLE SL ONE (15:32)
[2023-09-07 16:00] VITALS: BP 123/62; TEMP 98.4; O2SAT 99
[2023-09-07 17:00] VITALS: BP 123/62
== END 2023-09-07 18:53 | disposition home health service (06) | DRG 40 ==
LOC: ER 14:54 → TELE 18:21
PROVIDERS: ADMIT Internal Medicine; ATTEND Internal Medicine
PROC: 5A1D70Z Performance of Urinary Filtration, Intermittent, Less than 6 Hours Per Day (ICD-10-PCS; principal; 2023-09-05)
PROC: 30233N1 Transfusion of Nonautologous Red Blood Cells into Peripheral Vein, Percutaneous Approach (ICD-10-PCS; 2023-09-05)
PROC: 0JB70ZZ Excision of Back Subcutaneous Tissue and Fascia, Open Approach (ICD-10-PCS; 2023-09-07)
DX: I63.511 Cerebral infarction due to unspecified occlusion or stenosis of right middle cerebral artery (principal); I21.A1 Myocardial infarction type 2; L89.153 Pressure ulcer of sacral region, stage 3; N18.6 End stage renal disease; I13.11 Hypertensive heart and chronic kidney disease without heart failure, with stage 5 chronic kidney disease, or end stage renal disease; I96 Gangrene, not elsewhere classified; D62 Acute posthemorrhagic anemia; Z88.0 Allergy status to penicillin; Z91.014 Allergy to mammalian meats; Z79.82 Long term (current) use of aspirin; Z79.01 Long term (current) use of anticoagulants; Z79.899 Other long term (current) drug therapy; Z86.718 Personal history of other venous thrombosis and embolism; Z86.711 Personal history of pulmonary embolism; Z86.74 Personal history of sudden cardiac arrest; Z99.2 Dependence on renal dialysis; K64.8 Other hemorrhoids; G90.8 Other disorders of autonomic nervous system; R29.701 NIHSS score 1; R13.10 Dysphagia, unspecified; D63.8 Anemia in other chronic diseases classified elsewhere; K59.09 Other constipation
CPT/HCPCS: 36415; 70450-TC; 70496-TC; 70498-TC; 71045-TC; 75574; 80048-TC; 80053-TC; 80061-TC; 80076-TC; 82140-TC; 82272-TC; 82607-TC; 82728-TC; 82962-TC; 83540-TC; 83735-TC; 83921; 84100-TC; 84443-TC; 84484-TC; 85025-TC; 85652-TC; 85730-TC; 86850-TC; 90935-TC; 92526; 92611-TC; 93307-TC; 94760-TC; 94761-TC; 94762-TC; 94799-TC; 97110-TC; 97112-TC; 97116-TC; 97530-TC; 97535-TC; G0378; G0480; J3490; J7030; J7050; P9016; Q9967